=== PATIENT | male | born 1980 | race Caucasian/White ===

== ENCOUNTER → 2016-10-04 08:32 | Outpatient (CLI) | payer OTHER ==
--- NOTE | 2016-10-04 10:54 | NUR ---
Nutrition education for gastric sleeve bariatric diet: S: pt reports he has tried Adipex, Slim Fast, Plexus with limited results; maybe 25-30# weight loss. Pt states he gained all the weight back after stopping the programs. pt resport he was drinking a lot of regular soda, sweet tea and juice every day. Pt also states he has a very big sweet tooth and indulges in sweets every day. Pt also has a very large appetite and overeats at all meals. Pt has recently stopped all surgary drinks except juice and states he has lost weight; however, pt is not sure how much. O: 36 y/o male with prediabetes, sleep apnea, HTN Meds: Metformin Ht: 6'2" Wt: 440# IBW: 190# +/-10% BMI: 56.5 Lowest adult wt: ~370# Highest wt: 440# A: 24 hour diet recall reveals pt is eating mostly meat and starches. Pt admits to never eating nonstarchy vegetables. Pt is also eating a lot of empty calories from high sugar foods, ie, cookies, pies, candy, cake. Pt was also drinking a lot of high sugar drinks. Reviewed with pt what a healty diet consists of and provided sample menus. P: Reviewed pre/post op diet progression; discussed 1/2 cup meal size, dumping syndrome, no carbonated drinks or straws; discussed the importance of protein and protein always first; discussed protein supplements; pouch stretching; supplements for life; eating out; no alcohol in detail. Answered all of pts questions. Reviewed sample menus for all phases of post-op diet. Pt seems to have realistic expectations for weight loss; however, pt is not very happy with the diet changes that will be necessary to be successful long-term. Pt understands the importance of daily supplements and physical activity long-term. Pt seems to be motivated for change; Provided pt with printed diet information and RDN name and phone number. RDN will be available if needed. Thank you for the consult.
== END | disposition home or self-care (01) ==
LOC: D.FANS 08:32
DX: Z01.810 Encounter for preprocedural cardiovascular examination (principal)

== ENCOUNTER → 2016-11-24 10:22 | Outpatient (CLI) | payer OTHER | END | disposition home or self-care (01) | LOC: D.RT 10:22 | DX: R06.09 Other forms of dyspnea (principal) ==

== ENCOUNTER → 2016-12-15 10:13 | Outpatient (CLI) | payer OTHER ==
[2016-12-15 10:44] LABS: BASOPHILS 0.2 % (0-2); EOSINOPHILS 2.5 % (0-7); HEMATOCRIT 41.4 % (42.0-54.0); HEMOGLOBIN 13.6 g/dL (13.5-17.5); IMMATURE GRANULOCYTES 0.2 % (0-5); LYMPHOCYTES 21.9 % (15-50); MCH 29.9 pg (26.0-34.0); MCHC 32.9 g/dL (31.0-37.0); MEAN PLATELET VOLUME 9.2 fL (7.4-10.4); MONOCYTES 5.9 % (2-11); NEUTROPHILS 69.3 % (40-80); PLATELET COUNT 245 10x3/uL (130-400); RBC 4.55 10x6/uL (4.20-6.10); RDW 13.5 % (11.5-14.5); WBC 8.8 10x3/uL (4.8-10.8)
[2016-12-15 10:59] LABS: APTT 27.9 SECONDS (22.8-39.4); INR 1.02 (0.85-1.17); PROTIME 13.2 SECONDS (11.6-15.0)
[2016-12-15 11:06] LABS: HELICOBACTER PYLORI IGG NEGATIVE (NEGATIVE)
[2016-12-15 11:32] LABS: ALBUMIN 3.2 g/dL (3.4-5.0); ALKALINE PHOSPHATASE 63 U/L (46-116); ALT (SGPT) 43 U/L (10-68); BILIRUBIN - DIRECT 0.12 mg/dL (0.00-0.30); BILIRUBIN - TOTAL 0.52 mg/dL (0.2-1.3); CALC OSMOLALITY 276 mosm/kg (275-300); CALCIUM 8.8 mg/dL (8.5-10.1); CARBON DIOXIDE 28.4 mmol/L (21.0-32.0); CHLORIDE - SERUM 105 mmol/L (98-107); CHOL - HDL RATIO 4.4 ratio (2.3-4.9); CHOLESTEROL, TOTAL 150 mg/dL (0-200); GLUCOSE 95 mg/dL (74-106); HDL CHOLESTEROL 34 mg/dL (32-96); LDL CHOLESTEROL 97 mg/dL (0-100); LDL-HDL RATIO 2.9 ratio (1.5-3.5); POTASSIUM - SERUM 4.3 mmol/L (3.5-5.1); PROTEIN - SERUM 7.3 g/dL (6.4-8.2); SODIUM 138 mmol/L (136-145); T4 THYROXINE 8.6 ug/dL (4.7-13.3); THYROID STIMULATING HORMONE 0.59 uIU/mL (0.36-3.74); TRIGLYCERIDE 99 mg/dL (30-200); UREA NITROGEN 15 mg/dL (7-18); eGFR NON AFRICAN AMERICAN 90 mL/min (90-120)
[2016-12-16 07:27] LABS: FOLATE (FOLIC ACID) - SERUM >20.0 ng/mL (>3.0)
[2016-12-18 08:09] LABS: HELICOBACTER PYLORI IGM AB 1.8 units (0.0-8.9)
[2016-12-18 09:09] LABS: VITAMIN D 25 HYDROXY 32.7 ng/mL (30.0-100.0)
== END | disposition home or self-care (01) ==
LOC: D.LAB 10:13
PROVIDERS: Surgery
DX: Z00.00 Encounter for general adult medical examination without abnormal findings (principal)

== ENCOUNTER → 2016-12-25 09:28 | Outpatient (CLI) | payer OTHER | END | disposition home or self-care (01) | LOC: D.RAD 09:28 | DX: K21.9 Gastro-esophageal reflux disease without esophagitis (principal); Z68.43 Body mass index [BMI] 50.0-59.9, adult; E66.2 Morbid (severe) obesity with alveolar hypoventilation; R06.89 Other abnormalities of breathing ==

== ENCOUNTER 2017-01-03 05:32 | Day surgery (SDC) | payer OTHER ==
[~2017-01-03] VITALS: Ht 188 cm; Wt 188.6 kg
[2017-01-03] MEDS ORDERED: ZESTORETIC 20-1 EACH PO (06:33)
[2017-01-03] MEDS ORDERED: METFORMIN HCL500 M1 PO (06:34)
[2017-01-03] MEDS ORDERED: OMEPRAZOLE20 M1 PO (06:35)
[2017-01-03 06:42] VITALS: Ht 188 cm; Wt 188.6 kg
[2017-01-03 07:32] LABS: CALC OSMOLALITY 277 mosm/kg (275-300); CALCIUM 8.7 mg/dL (8.5-10.1); CARBON DIOXIDE 25.9 mmol/L (21.0-32.0); CHLORIDE - SERUM 104 mmol/L (98-107); CREATININE - SERUM 0.9 mg/dL (0.6-1.3); GLUCOSE 113 mg/dL (74-106); POTASSIUM - SERUM 4.5 mmol/L (3.5-5.1); SODIUM 137 mmol/L (136-145); UREA NITROGEN 20 mg/dL (7-18); eGFR NON AFRICAN AMERICAN > 90 mL/min (90-120)
[2017-01-03 07:35] LABS: BASOPHILS 0.3 % (0-2); EOSINOPHILS 2.9 % (0-7); HEMATOCRIT 41.4 % (42.0-54.0); HEMOGLOBIN 13.4 g/dL (13.5-17.5); IMMATURE GRANULOCYTES 0.2 % (0-5); LYMPHOCYTES 20.1 % (15-50); MCH 29.7 pg (26.0-34.0); MCHC 32.4 g/dL (31.0-37.0); MCV 91.8 fL (80.0-100.0); MEAN PLATELET VOLUME 9.6 fL (7.4-10.4); MONOCYTES 6.6 % (2-11); NEUTROPHILS 69.9 % (40-80); PLATELET COUNT 270 10x3/uL (130-400); RBC 4.51 10x6/uL (4.20-6.10); RDW 13.4 % (11.5-14.5); WBC 8.7 10x3/uL (4.8-10.8)
--- NOTE | 2017-01-03 08:37 | NUR ---
0815-RECD TO ROOM. ALERT. RESP WITH EASE. IV PATENT. DR GEIGER HERE TO REPORT TO PATIENT AND FAMILY. 0830-FULL LIQUIDS SERVED.
--- NOTE | 2017-01-03 08:53 | NUR ---
0845-DISCHARGE INSTRUCTIONS REVIEWED. 0853-DISCHARGED HOME VIA WHEELCHAIR.
--- NOTE | 2017-01-03 09:56 | OP ---
PATIENT NAME: BARBARA MERIDA MEDICAL RECORD: [id number] :82 LOCATION:D.OPS ADMISSION DATE: SURGEON: MINO GEIGER MD DATE OF OPERATION: 01/03/2017 SURGEON: Mino Geiger MD PREOPERATIVE DIAGNOSES: 1. Morbid obesity. 2. Extreme obesity with alveolar hypoventilation. 3. Obstructive sleep apnea. 4. Body mass index 50-60. 5. Gastroesophageal reflux disease. 6. Hypertension. POSTOPERATIVE DIAGNOSES: 1. Morbid obesity. 2. Extreme obesity with alveolar hypoventilation. 3. Obstructive sleep apnea. 4. Body mass index 50-60. 5. Gastroesophageal reflux disease. 6. Hypertension. PROCEDURES PERFORMED: Esophagogastroduodenoscopy with biopsy. ANESTHESIA: Total intravenous anesthesia. COMPLICATIONS: None. SPECIMENS: 1. Duodenum. 2. Antrum. 3. Stomach. 4. GE junction. ESTIMATED BLOOD LOSS: Minimal. Case was contaminated. OPERATIVE COURSE: After consent was obtained, the patient was taken to the endoscopy suite and placed in the supine position on the table. A timeout was taken to confirm the correct patient and procedure. Hurricaine Winifrede was administered. A bite block was placed. A total intravenous anesthesia was given. The scope was passed through the bite block. It was passed through the oropharynx under direct endoscopic vision. It was passed posterior to the epiglottis and advanced into the upper esophagus. The scope was advanced through the esophagus through the gastroesophageal junction and the stomach. The stomach was insufflated. The scope was advanced to the pylorus. The pylorus was intubated. There was some mild duodenitis noted. Multiple biopsies of the duodenum were taken. The scope was withdrawn into the prepyloric region. There was some mild antritis noted. Multiple biopsies were taken of the gastric antrum. The scope was retroflexed and evaluated. Multiple biopsies of the stomach were taken. There was reflux esophagitis noted, grade I. There were some abnormalities at the Z line noted on retroflexion of the scope. There was a very small hiatal hernia noted. The scope was passed back into the OPERATIVE REPORT [id number] BARBARA MERIDA esophagus. The gastroesophageal junction was examined. Biopsies again were taken at the GE junction along the Z line. At this time, the scope was reinserted into the stomach. The stomach was desufflated and the esophagus was examined upon withdrawal of the scope. There were no abnormalities of the esophagus identified. At this time, the procedure was terminated. At the end of the case, all needle and instrument counts were correct. No complications occurred. The patient was transferred to the recovery room in satisfactory condition. TRANSINT:[id number] Voice Confirmation ID: [id number] DOCUMENT ID: [id number] MINO GEIGER MD at 0956 CC: [id number] DICTATION DATE: 01/03/17806 TURBINE OPERATOR: 01/03/17 0844 [id number] [place] [address]
== END 2017-01-03 09:30 | disposition home or self-care (01) ==
LOC: D.OPS 05:32
PROVIDERS: Anesthesiology
DX: K29.80 Duodenitis without bleeding (principal); K21.0 Gastro-esophageal reflux disease with esophagitis; K29.70 Gastritis, unspecified, without bleeding; E66.2 Morbid (severe) obesity with alveolar hypoventilation; Z68.43 Body mass index [BMI] 50.0-59.9, adult; G47.33 Obstructive sleep apnea (adult) (pediatric); I10 Essential (primary) hypertension

== ENCOUNTER 2017-02-05 07:30 | Inpatient (IN) | payer OTHER ==
[2017-02-02 13:05] LABS: HEMATOCRIT 38.4 % (42.0-54.0); HEMOGLOBIN 12.8 g/dL (13.5-17.5); MCHC 33.3 g/dL (31.0-37.0); MCV 89.9 fL (80.0-100.0); RBC 4.27 10x6/uL (4.20-6.10); RDW 13.3 % (11.5-14.5); WBC 9.7 10x3/uL (4.8-10.8)
[2017-02-02 13:22] LABS: ANION GAP 12.5 mmol/L (8-16); CALCIUM 9.2 mg/dL (8.5-10.1); CARBON DIOXIDE 27.1 mmol/L (21.0-32.0); CREATININE - SERUM 1.3 mg/dL (0.6-1.3); POTASSIUM - SERUM 4.6 mmol/L (3.5-5.1)
[~2017-02-05] VITALS: Ht 188 cm; Wt 183.2 kg
[2017-02-05 06:18] VITALS: BP 122/57; BMI 51.8
[~2017-02-05 07:30] MED LIST: METFORMIN HCL500 M1 PO; OMEPRAZOLE20 M1 PO; ZESTORETIC 20-1 EACH PO
--- NOTE | 2017-02-05 08:15 | NUR ---
SITTING UP IN CHAIR AT BEDSIDE. NO SIGNS OF DISTRESS NOTED. CALL LIGHT IN REACH.
[2017-02-05 10:18] VITALS: BP 157/66
--- NOTE | 2017-02-05 10:28 | NUR ---
RECEIVED TO FLOOR, DENIES NEEDS, BED LOWEST POSITION, CALL LIGHT IN REACH
[2017-02-05 14:24] VITALS: BP 156/89; Ht 188 cm; Wt 183.2 kg
--- NOTE | 2017-02-05 14:57 | NUR ---
Nutrition consult: Visited with pt re: post-bariatric surgery diet. Answered pts questions. RDN will be avaiable for questions after discharge.
[2017-02-05 16:29] VITALS: BP 125/71
--- NOTE | 2017-02-05 19:00 | NUR ---
PATIENT SUPINE IN BED. HOB 30 DEGREES. AAOX4. RR EVEN AND UNLABORED. 0 S/S OF DISTRESS. DENIES PAIN AT THIS TIME. IV TO RIGHT HAND PATENT WITH NO REDNESS OR SWELLING. LAP SITES X6 TO ABD WITH STERISTRIPS. SCD'S ON. AT BEDSIDE. SRX2. BED LOW. CALL LIGHT WITHIN REACH.
[2017-02-05 20:00] VITALS: BP 132/69
--- NOTE | 2017-02-05 20:00 | NUR ---
PATIENT VOIDED FOR FIRST TIME SINCE PROCEDURE. NOW AMBULATING IN HALLWAY.
--- NOTE | 2017-02-05 22:05 | NUR ---
NIGHTTIME MEDICATION ADMINISTERED. DENIES NEEDS AT THIS TIME.
[2017-02-06] VITALS: BP 136/73
--- NOTE | 2017-02-06 07:30 | NUR ---
UP TO CHAIR, DENIES NEEDS, CALL LIGHT IN REACH, WILL CONTINUE TO MONITOR
--- NOTE | 2017-02-06 08:50 | NUR ---
PATIENT UP AMBULATING IN HALLWAY WITH FAMILY. NO SIGNS OF DISTRESS NOTED.
[2017-02-06 09:30] VITALS: BP 185/59
[2017-02-06] MEDS ORDERED: HYDROCODON-ACE1 EAC7 PO (10:31)
--- NOTE | 2017-02-06 12:25 | NUR ---
DISCHARGE PAPERS AND INSTRCUTIONS GIVEN TO PATIENT AND , QUESTIONS AMSWERED, IV REMOVED TIP INTACT, DISCHARGED PER WC WITH BELONGINGS
== END 2017-02-06 12:26 | disposition home or self-care (01) | DRG 982 ==
LOC: D.SDCHOLD 07:30 → D.MS 10:03
PROVIDERS: Anesthesiology; ADMIT Surgery
PROC: 0DB64Z3 Excision of Stomach, Percutaneous Endoscopic Approach, Vertical (ICD-10-PCS; principal; 2017-02-05 07:30)
DX: E66.2 Morbid (severe) obesity with alveolar hypoventilation (principal); Z68.43 Body mass index [BMI] 50.0-59.9, adult; I10 Essential (primary) hypertension; K21.9 Gastro-esophageal reflux disease without esophagitis; E78.00 Pure hypercholesterolemia, unspecified; E11.9 Type 2 diabetes mellitus without complications; Z79.84 Long term (current) use of oral hypoglycemic drugs

== ENCOUNTER → 2017-05-01 14:10 | Outpatient (CLI) | payer OTHER ==
[2017-02-05 14:24] VITALS: BMI 51.8
[~2017-05-01 14:10] MED LIST changes: +HYDROCODON-ACE1 EAC7 PO
[2017-05-01 15:30] LABS: BASOPHILS 0.2 % (0-2); EOSINOPHILS 2.9 % (0-7); HEMATOCRIT 38.9 % (42.0-54.0); HEMOGLOBIN 12.6 g/dL (13.5-17.5); IMMATURE GRANULOCYTES 0.2 % (0-5); LYMPHOCYTES 18.3 % (15-50); MCH 29.9 pg (26.0-34.0); MCHC 32.4 g/dL (31.0-37.0); MCV 92.4 fL (80.0-100.0); MONOCYTES 5.6 % (2-11); NEUTROPHILS 72.8 % (40-80); PLATELET COUNT 259 10x3/uL (130-400); RBC 4.21 10x6/uL (4.20-6.10); RDW 13.9 % (11.5-14.5); WBC 9.4 10x3/uL (4.8-10.8)
== END | disposition home or self-care (01) ==
LOC: D.LAB 14:10
PROVIDERS: Surgery
DX: Z00.129 Encounter for routine child health examination without abnormal findings (principal); R73.9 Hyperglycemia, unspecified; I10 Essential (primary) hypertension

== ENCOUNTER → 2017-07-13 09:24 | Outpatient (CLI) | payer OTHER ==
[2017-02-05 14:24] VITALS: BMI 51.8
[2017-07-13 09:48] LABS: BASOPHILS 0.2 % (0-2); EOSINOPHILS 3.5 % (0-7); HEMATOCRIT 41.4 % (42.0-54.0); HEMOGLOBIN 13.6 g/dL (13.5-17.5); IMMATURE GRANULOCYTES 0.2 % (0-5); LYMPHOCYTES 23.1 % (15-50); MCH 29.9 pg (26.0-34.0); MCHC 32.9 g/dL (31.0-37.0); MEAN PLATELET VOLUME 9.4 fL (7.4-10.4); MONOCYTES 8.3 % (2-11); NEUTROPHILS 64.7 % (40-80); PLATELET COUNT 221 10x3/uL (130-400); RBC 4.55 10x6/uL (4.20-6.10); WBC 6.7 10x3/uL (4.8-10.8)
[2017-07-13 10:02] LABS: ALBUMIN 3.4 g/dL (3.4-5.0); ALKALINE PHOSPHATASE 69 U/L (46-116); ALT (SGPT) 17 U/L (10-68); CALC OSMOLALITY 280 mosm/kg (275-300); CALCIUM 8.8 mg/dL (8.5-10.1); CHLORIDE - SERUM 104 mmol/L (98-107); CHOL - HDL RATIO 4.4 ratio (2.3-4.9); CHOLESTEROL, TOTAL 160 mg/dL (0-200); CREATININE - SERUM 1.1 mg/dL (0.6-1.3); GLUCOSE 85 mg/dL (74-106); HDL CHOLESTEROL 36 mg/dL (32-96); LDL CHOLESTEROL 112 mg/dL (0-100); LDL-HDL RATIO 3.1 ratio (1.5-3.5); POTASSIUM - SERUM 4.2 mmol/L (3.5-5.1); PROTEIN - SERUM 6.9 g/dL (6.4-8.2); SODIUM 140 mmol/L (136-145); TRIGLYCERIDE 60 mg/dL (30-200); UREA NITROGEN 20 mg/dL (7-18); eGFR NON AFRICAN AMERICAN 80 mL/min (90-120)
[2017-07-16 04:06] LABS: VITAMIN D 25 HYDROXY 43.1 ng/mL (30.0-100.0)
== END | disposition home or self-care (01) ==
LOC: D.LAB 09:24
PROVIDERS: Surgery
DX: Z00.00 Encounter for general adult medical examination without abnormal findings (principal)

== ENCOUNTER → 2017-10-19 09:43 | Outpatient (CLI) | payer OTHER ==
[2017-02-05 14:24] VITALS: BMI 51.8
[2017-10-19 10:19] LABS: BASOPHILS 0.4 % (0-2); EOSINOPHILS 3.2 % (0-7); HEMATOCRIT 40.8 % (42.0-54.0); HEMOGLOBIN 13.7 g/dL (13.5-17.5); IMMATURE GRANULOCYTES 0.1 % (0-5); LYMPHOCYTES 24.8 % (15-50); MCH 30.2 pg (26.0-34.0); MCHC 33.6 g/dL (31.0-37.0); MCV 89.9 fL (80.0-100.0); MEAN PLATELET VOLUME 9.4 fL (7.4-10.4); NEUTROPHILS 64.5 % (40-80); PLATELET COUNT 210 10x3/uL (130-400); RBC 4.54 10x6/uL (4.20-6.10); WBC 7.1 10x3/uL (4.8-10.8)
[2017-10-19 10:26] LABS: CREATININE - SERUM 0.9 mg/dL (0.6-1.3)
== END | disposition home or self-care (01) ==
LOC: D.LAB 09:43
PROVIDERS: Surgery
DX: Z01.812 Encounter for preprocedural laboratory examination (principal); Z00.00 Encounter for general adult medical examination without abnormal findings; K21.9 Gastro-esophageal reflux disease without esophagitis

== ENCOUNTER → 2018-01-29 15:16 | Outpatient (CLI) | payer OTHER ==
[2017-02-05 14:24] VITALS: BMI 51.8
[2018-01-29 15:57] LABS: BASOPHILS 0.3 % (0-2); EOSINOPHILS 2.5 % (0-7); HEMATOCRIT 39.5 % (42.0-54.0); HEMOGLOBIN 13.2 g/dL (13.5-17.5); IMMATURE GRANULOCYTES 0.1 % (0-5); LYMPHOCYTES 23.7 % (15-50); MCH 30.1 pg (26.0-34.0); MCHC 33.4 g/dL (31.0-37.0); MCV 90.2 fL (80.0-100.0); MEAN PLATELET VOLUME 9.1 fL (7.4-10.4); MONOCYTES 6.3 % (2-11); NEUTROPHILS 67.1 % (40-80); PLATELET COUNT 227 10x3/uL (130-400); RBC 4.38 10x6/uL (4.20-6.10); RDW 12.8 % (11.5-14.5); WBC 6.7 10x3/uL (4.8-10.8)
[2018-01-29 16:24] LABS: ALBUMIN 3.7 g/dL (3.4-5.0); ALKALINE PHOSPHATASE 59 U/L (46-116); ALT (SGPT) 18 U/L (10-68); BILIRUBIN - TOTAL 0.71 mg/dL (0.2-1.3); CALC OSMOLALITY 285 mosm/kg (275-300); CARBON DIOXIDE 26.1 mmol/L (21.0-32.0); CHLORIDE - SERUM 106 mmol/L (98-107); CHOL - HDL RATIO 4.2 ratio (2.3-4.9); CHOLESTEROL, TOTAL 163 mg/dL (0-200); CREATININE - SERUM 0.9 mg/dL (0.6-1.3); GLUCOSE 84 mg/dL (74-106); HDL CHOLESTEROL 39 mg/dL (32-96); LDL CHOLESTEROL 114 mg/dL (0-100); LDL-HDL RATIO 2.9 ratio (1.5-3.5); SODIUM 142 mmol/L (136-145); TRIGLYCERIDE 52 mg/dL (30-200); UREA NITROGEN 23 mg/dL (7-18); eGFR NON AFRICAN AMERICAN > 90 mL/min (90-120)
== END | disposition home or self-care (01) ==
LOC: D.LAB 15:16
PROVIDERS: Surgery
DX: Z01.812 Encounter for preprocedural laboratory examination (principal); Z00.00 Encounter for general adult medical examination without abnormal findings; K21.9 Gastro-esophageal reflux disease without esophagitis; I10 Essential (primary) hypertension